=== PATIENT | male | born 1985 | race African-American/Black ===

== ENCOUNTER 2017-01-10 22:49 | Observation (INO) ==
[2017-01-10] MEDS ORDERED: HYDROmorphone 2 MG/1 ML VIAL IV STA ×2 (23:22)
[2017-01-10] MEDS ORDERED: ONDANSETRON 4 MG/2 ML VIAL IV STA ×2 (23:22)
[2017-01-10] MEDS ORDERED: SODIUM CHLORIDE 0.9% 1,000 ML IV STA ×2 (23:23)
[2017-01-10] MEDS ORDERED: HYDROmorphone 2 MG/1 ML VIAL ONE (23:36)
[2017-01-11] MEDS ORDERED: TETANUS IMMUNE GLOBULIN 250 UNIT SYRINGE IM STA (00:41)
[2017-01-11] MEDS ORDERED: ceFAZolin 1,000 MG VIAL ONE (00:54)
[2017-01-11] MEDS ORDERED: SODIUM CHLORIDE 0.9% 100 ML IV ONE ×2 (00:54→03:09)
[2017-01-11] MEDS ORDERED: DIPH/TET/ACEL PERT BOOSTER VACCINE 0.5 ML VIAL IM ONE (00:54)
[2017-01-11 01:05] LABS: Calcium 9.3 MG/DL (8.5-10.1); Osmolality,Calculated 282.3 MOS/KG (273-304); Potassium 3.7 MMOL/L (3.5-5.1)
[2017-01-11 01:14] LABS: Basophils % 0.2 % (0.0-0.8); Eosinophils # 0.1 10*3/uL (0.0-0.87); Eosinophils % 0.6 % (0.00-10.9); Hematocrit 43.5 VOL% (42.0-52.0); Hemoglobin 14.5 GM/DL (14.0-18.0); Immature Granulocytes % 0.4 %; Immature Granulocytes Absolute 0.04 #; Lymphocytes # 3.6 10*3/uL (1.4-4.0); Lymphocytes % 39.6 % (21.2-54.2); Mean Corpuscular HGB Conc 33.3 GM/DL (32-36); Mean Corpuscular Hemoglobin 29 PG (27-34); Mean Corpuscular Volume 86.8 FL (87-102); Mean Platelet Volume 12.6 FL (9.6-12.0); Monocytes # 0.7 10*3/uL (0.11-0.8); Monocytes % 7.9 % (1.7-12.7); Neutrophils # 4.7 10*3/uL (1.4-7.4); Neutrophils % 51.3 % (38.7-73.9); Platelet Count 204 T/CUMM (130-400); Red Blood Count 5.01 MC/CUMM (3.8-5.5); Red Cell Distribution Width 12.6 % (9.3-17.3); White Blood Count 9.1 T/CUMM (4-12)
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
[2017-01-11] MEDS ORDERED: MORPHINE 2 MG/1 ML SYRINGE IV PRN (01:37)
[2017-01-11] MEDS ORDERED: ONDANSETRON 4 MG/2 ML VIAL IV PRN ×2 (01:37→04:03)
[2017-01-11] MEDS ORDERED: MAGNESIUM HYDROXIDE SUSP 30 ML UDCUP PO PRN ×2 (01:37→04:03)
[2017-01-11] MEDS ORDERED: KETOROLAC 30 MG/1 ML VIAL IV PRN ×2 (01:37→04:02)
--- NOTE | 2017-01-11 01:48 | Operative Note ---
Procedure: DIAGNOSIS: Left thumb open interphalangeal dislocation. Closed right fourth metacarpal fracture. PROCEDURE: Open reduction, irrigation and debridement left thumb open IP dislocation. Closed treatment right fourth metacarpal fracture. SURGEON: Dakota ANESTHESIA: MAC and local PROCEDURE and FINDINGS: After adequate anesthesia was induced, his left upper extremity was prepped and draped in usual sterile fashion. The limb was exsanguinated with Esmarch. 6 cc of half percent Marcaine plain was used as a digital block for additional pain control. Tourniquet was inflated to 250 mmHg. Estimated tourniquet time was 8 minutes. A chevron incision was made incorporating his open wound on the volar radial aspect of his thumb. The volar plate was incarcerated in the joint, preventing reduction. A freer elevator was used to retract the volar plate in the joint was then easily reduced. Upon reduction, the joint was stable. His joint and proximal phalanx were copiously irrigated with normal saline prior to reduction. The surgical incision was closed with 4-0 nylon simple sutures. The open laceration was left open to drain. A sterile dressing and thumb spica splint was applied. A splint was applied to his right upper extremity incorporating his middle through small fingers. The patient was then transferred to recovery room in stable condition. Surgeon / Physician: Bassem Duncan Jr. Results - Labs CBC & BMP: 01/11/17 00:00 01/11/17 Unknown Discharge Plan - Discharge Medications No Action No Known Home Medications [No Known Home Medications] - Follow Up or Referral - Forms/Instructions
[2017-01-11] MEDS ORDERED: PROPOFOL 200 MG/20 ML VIAL IV ONE (01:54)
[2017-01-11] MEDS ORDERED: LACTATED RINGERS 1,000 ML IV SCH ×2 (02:00)
[2017-01-11] MEDS ORDERED: BUPIVACAINE 0.25% 50 ML VIAL ONE (02:12)
[2017-01-11] MEDS ORDERED: ONDANSETRON 4 MG/2 ML VIAL ONE (02:38)
[2017-01-11] MEDS ORDERED: HYDROmorphone 2 MG/1 ML VIAL ONE (02:40)
--- NOTE | 2017-01-11 02:59 | Anesthesia Post-Op ---
Anesthesia Post OP - Post Ansesthetic Evaluation Patient seen in post op: Yes Resp: within normal limits CV: within normal limits Mental: within normal limits Temp: within normal limits Akir-[id number]-Fevjndfxj: within normal limits Nausea and Vomiting: within normal limits Pain: within normal limits
[2017-01-11 03:00] LABS: Platelet Estimate Normal
[2017-01-11] MEDS ORDERED: fentaNYL 100 MCG/2 ML VIAL ONE (03:09)
[2017-01-11] MEDS ORDERED: MIDAZOLAM 2 MG/2 ML VIAL ONE (03:09)
[2017-01-11] MEDS ORDERED: LACTATED RINGERS 1,000 ML IV ONE (03:09)
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
--- NOTE | 2017-01-11 08:15 | XRay Report ---
XR finger LT Clinical Information: LT THUMB REDUCTION Total fluoroscopy time: 1.5 seconds. Operating surgeon: Dr. Duncan No available Findings: Intraoperative fluoroscopy was evaluated by the attending surgeon at the time of the procedure.. Impression: Intraoperative fluoroscopy as detailed above. PROCEDURE INTERPRETED AT [facility] DEPARTMENT OF RADIOLOGY Final Report Signed by: Manan Mayo
--- NOTE | 2017-01-11 09:03 | Orthopedic Progress Note ---
Assessment and Plan (1) Metacarpal bone fracture Status: Acute Current Visit: Yes Qualifiers: Encounter type: initial encounter Metacarpal bone: fourth Fracture type: closed Metacarpal location: shaft Fracture alignment: displaced Laterality : right Qualified Code(s): S62.324A - Displaced fracture of shaft of fourth metacarpal bone, right hand, initial encounter for closed fracture (2) Dislocated thumb Status: Acute Current Visit: Yes Qualifiers: Encounter type: initial encounter Laterality: left Qualified Code(s): S63.105A - Unspecified dislocation of left thumb, initial encounter Orthopedics - Subjective Interval history: Mr. Oliveira is comfortable this morning. He does complain of some mild tightness to his right hand. Splints are intact. Capillary refill is less than 2 seconds. Digital block is still working for his left thumb. Plan: Stop IV fluids. Continue ceftezole and. Plan discharge tomorrow. Exam - Constitutional Vitals: Period Temp Pulse Resp BP Sys/Moseley Pulse Ox Last 24 Hr 97.6 F-99 F 52-100 13-20 104-152/58-105 98-100 Results - Labs CBC & BMP: 01/11/17 00:00 01/11/17 Unknown
[2017-01-11] MEDS: MORPHINE 2 MG/1 ML SYRINGE IV PRN ×3 (12:35→19:44)
[2017-01-12] MEDS: MORPHINE 2 MG/1 ML SYRINGE IV PRN ×3 (00:04→12:25)
--- NOTE | 2017-01-12 10:07 | Orthopedic Progress Note ---
Assessment and Plan (1) Metacarpal bone fracture Status: Acute Current Visit: Yes Qualifiers: Encounter type: initial encounter Metacarpal bone: fourth Fracture type: closed Metacarpal location: shaft Fracture alignment: displaced Laterality : right Qualified Code(s): S62.324A - Displaced fracture of shaft of fourth metacarpal bone, right hand, initial encounter for closed fracture (2) Dislocated thumb Status: Acute Current Visit: Yes Qualifiers: Encounter type: initial encounter Laterality: left Qualified Code(s): S63.105A - Unspecified dislocation of left thumb, initial encounter Orthopedics - Subjective Interval history: comfortable. splints intact. sens intact to light touch. home today after next dose ancef. d/c instructions reviewed. prescription for norco v and keflex written. Exam - Constitutional Vitals: Period Temp Pulse Resp BP Sys/Moseley Pulse Ox Last 24 Hr 98.4 F-99.2 F 56-74 16-20 122-165/67-88 91-100 Results - Labs CBC & BMP: 01/11/17 00:00 01/11/17 Unknown Specialty Discharge - Follow Up or Referrals Follow up with: Bassem Duncan Jr., MD [Physician] - 01/20/17 8:50 am (7-10 days)
[2017-01-12 11:36] VITALS: BP 137/79
== END 2017-01-12 14:19 | disposition home or self-care (01) ==
LOC: N.EDINP 22:49 → N.ED 22:49 → N.3E 01-11 04:03
PROVIDERS: ADMIT Orthopaedic Surgery; ATTEND Orthopaedic Surgery